=== PATIENT | male | born 1995 | race Caucasian/White ===

== ENCOUNTER 2020-03-25 22:45 | Emergency (ER) | payer MEDICAID ==
[~2020-03-25] VITALS: Ht 177.8 cm; Wt 85.4 kg
[2020-03-26 00:09] VITALS: BP 115/64
== END 2020-03-26 00:09 | disposition home or self-care (01) ==
LOC: ED 22:45
DX: F41.9 Anxiety disorder, unspecified (principal); R51 Headache; H93.13 Tinnitus, bilateral; F15.10 Other stimulant abuse, uncomplicated; Z88.8 Allergy status to other drugs, medicaments and biological substances

== ENCOUNTER 2020-03-29 03:18 | Emergency (ER) | payer MEDICAID ==
[~2020-03-29] VITALS: Ht 177.8 cm; Wt 81.4 kg
[2020-03-29 03:53] VITALS: Ht 177.8 cm; Wt 81.4 kg
[2020-03-29 05:54] VITALS: BP 134/60
== END 2020-03-29 05:54 | disposition home or self-care (01) ==
LOC: ED 03:18
DX: F41.9 Anxiety disorder, unspecified (principal); F19.10 Other psychoactive substance abuse, uncomplicated; Z88.8 Allergy status to other drugs, medicaments and biological substances